=== PATIENT | male | born 1950 | race Caucasian/White ===

== ENCOUNTER 2017-06-15 09:49 | Day surgery (SDC) | payer OTHER ==
--- NOTE | 2017-06-15 07:13 | PDHPUP ---
History & Physical Update H&P update statement: This history and physical update is based on an assessment of the patient which was completed after admission or registration (within 24 hours), but prior to the surgery/procedure. H&P update: H&P reviewed & patient examined, no change in patient's condition since H&P completed
--- NOTE | 2017-06-15 07:20 | GHP ---
[f rep st] HISTORY AND PHYSICAL DATE OF ADMISSION: 06/15/2017 CURRENT COMPLAINT: Right shoulder weakness. HISTORY OF PRESENT ILLNESS: The patient is a 66-year-old male with a long history of right shoulder problems. An MRI revealed a chronic large rotator cuff tear. He would like a superior capsular everardo nstruction in order to increase comfort and function. ALLERGIES: Current allergies include Aleve. CURRENT MEDICATIONS: Include valacyclovir. PAST MEDICAL HISTORY: Prior medical problems are negative. PAST SURGICAL HISTORY: Prior surgeries include a right shoulder scope with rotator cuff repair. SOCIAL HISTORY: He is a former smoker. He has moderate alcohol use. PHYSICAL EXAMINATION: HEENT: Patient's pupils are equal, round, and reactive to light. CHEST: Giovanny ar to auscultation. HEART: Regular rate and rhythm. ABDOMEN: Soft and nontender. RIGHT SHOULDER: He has significant weakness to supraspinatus as well as decreased strength to external rotation. MRI shows a massive retracted rotator cuff tear with severe atrophy of the supraspinatus and infraspi natus. ASSESSMENT AND PLAN: The patient is status post right shoulder recurrent rotator cuff tear with atro phy and retraction. Plan is to take him to the operating room to undergo a right superior capsular r econstruction with allograft and anchors. /[id number]/MODL
[~2017-06-15 09:49] MED LIST: ACETAMINOPHEN 500 MG TAB PO ONE; BACITRACIN 50,000 UNITS/10 ML SYR IRR ONE; BUPIVACAINE/EPI 0.5% 30 ML SDV ONE; EPINEPHrine 30 MG/30 ML MDV (0.1 MG/0.1 ML) ONE; POLYMYXIN B SULFATE 500,000 UNIT/10 ML SYR IRR ONE; ceFAZolin 2 GM/SWFI 2 GM/20 ML SYR IVP ONE
[2017-06-15] MEDS ORDERED: ACETAMINOPHEN 500 MG TAB ONE (10:10)
[2017-06-15] MEDS ORDERED: ceFAZolin 2 GM/SWFI 20 ML SYR IVP ONE (10:11)
[2017-06-15] MEDS ORDERED: LIDOCAINE 1% 2 ML INJ ONE (10:11)
[2017-06-15] MEDS ORDERED: LR 1,000 ML IV ONE (10:13)
[2017-06-15] MEDS ORDERED: LIDOCAINE 1% 2 ML INJ ID PRN (10:13)
--- NOTE | 2017-06-15 11:10 | PDANEPAE ---
ANE History of Present Illness 66 yo M w traumatic R shoulder injury here for operative repair ANE Past Medical History - Cardiovascular History Hx Hypertension: No Hx Arrhythmias: No Hx Chest Pain: No Hx Coronary Artery / Peripheral Vascular Disease: No Hx CHF / Valvular Disease: No Hx Palpitations: No - Pulmonary History Hx COPD: No Hx Asthma/Reactive Airway Disease: No Hx Recent Upper Respiratory Infection: No Hx Oxygen in Use at Home: No Hx Sleep Apnea: No Sleep Apnea Screening Result - Last Documented: Negative - Neurologic History Hx Cerebrovascular Accident: No Hx Seizures: No Hx Dementia: No - Endocrine History Hx Diabetes: No - Renal History Hx Renal Disorders: No - Liver History Hx Hepatic Disorders: No - Neurological & Psychiatric Hx Hx Neurological and Psychiatric Disorders: No - Cancer History Hx Cancer: No - Congenital Disorder History Hx Congenital Disorders: No - GI History Hx Gastrointestinal Disorders: No - Other Health History Other Health History: NA - Surgical History Prior Surgeries: Rotator cuff repair on R 2012 ANE Review of Systems Review of Systems: - Exercise capacity Exercise capacity: >=4 METS METS (RN): 6 METS ANE Patient History - Allergies Allergies/Adverse Reactions: naproxen sodium [From Aleve] Allergy (Intermediate, Verified 01/18/10 14:53) RASH, ITCHY LAMASIL Allergy (Unknown, Uncoded 01/18/10 14:53) - Home Medications Home medications: home medication list seen and reviewed Home Medications: VALTREX 01/18/10 [Last Taken Unknown] - NPO status NPO Status: no food or drink >8 hours NPO Since - Liquids (Date): 06/15/17 NPO Since - Liquids (Time): 03:00 NPO Since - Solids (Date): 06/14/17 NPO Since - Solids (Time): 20:00 - Anes Hx Anes Hx: no prior problems - Smoking Hx Smoking Status: Never smoked - Alcohol Use Alcohol Use: Occasionally - Family Anes Hx Family Anes Hx: none Family Hx Anesthesia Complications: NA ANE Labs/Vital Signs - Vital Signs Blood Pressure: 145/86 Heart Rate: 74 Respiratory Rate: 16 O2 Sat (%): 98 Height: 177.8 cm Weight: 83.915 kg ANE Physical Exam - Airway Neck exam: FROM Mallampati Score: Class 2 Mouth exam: normal dental/mouth exam - Pulmonary Pulmonary: no respiratory distress, clear to auscultation - Cardiovascular Cardiovascular: regular rate and rhythym, no murmur, rub, or gallop - ASA Status ASA Status: II ANE Anesthesia Plan Anesthesia Plan: general endotracheal anesthesia Regional Anesthesia: single shot NB, interscalene BP NB
[2017-06-15] MEDS ORDERED: MIDAZOLAM 2 MG/2 ML VIAL IVP ONE (11:12)
[2017-06-15] MEDS ORDERED: PROPOFOL 200 MG/20 ML VIAL ONE (11:19)
[2017-06-15] MEDS ORDERED: fentaNYL 100 MCG/2 ML INJ ONE (11:19)
[2017-06-15] MEDS ORDERED: LIDOCAINE 2% 100 MG/5 ML SYR ONE (11:21)
[2017-06-15] MEDS ORDERED: ROCURONIUM 50 MG/5 ML VIAL ONE (11:22)
[2017-06-15] MEDS ORDERED: ROPIVACAINE HCL 150 MG/30 ML INJ ONE (11:22)
[2017-06-15] MEDS ORDERED: clonIDINE 1 MG/10 ML VIAL EP ONE (11:22)
[2017-06-15] MEDS ORDERED: CALCIUM CHLORIDE 1 GM/10 ML INJ ONE (11:56)
[2017-06-15] MEDS ORDERED: THROMBIN (BOVINE) 5,000 UNIT VIAL TP ONE (11:57)
[2017-06-15] MEDS ORDERED: PHENYLEPHRINE 10 MG/ML SDV ONE (12:06)
[2017-06-15] MEDS ORDERED: DEXAMETHASONE 4 MG/ML VIAL ONE (12:39)
[2017-06-15] MEDS ORDERED: ONDANSETRON 4 MG/2 ML VIAL ONE (12:39)
[2017-06-15] MEDS ORDERED: ONDANSETRON 4 MG/2 ML VIAL IVP PRN ×2 (13:43)
[2017-06-15] MEDS ORDERED: NALOXONE HCL 0.4 MG/ML INJ IVP PRN (13:43)
[2017-06-15] MEDS ORDERED: ACETAMINOPHEN 325 MG TAB PO PRN (13:43)
[2017-06-15] MEDS ORDERED: HYDROCODONE/APAP 5/325 TAB PO PRN ×2 (13:43)
[2017-06-15] MEDS ORDERED: OXYCODONE/APAP 5/325 TAB PO PRN (13:43)
[2017-06-15] MEDS ORDERED: fentaNYL 100 MCG/2 ML INJ IVP PRN (13:43)
[2017-06-15] MEDS ORDERED: HYDROmorphONE/DILAUDID 1 MG/ML INJ IVP PRN ×2 (13:43)
--- NOTE | 2017-06-15 13:43 | POSTOPPROG ---
Post Op Note Date of Operation: 06/15/17 Surgeon: Meliza Mccain Molding Line Operator: trupti Anesthesiologist: minoo Anesthesia: LMA, Other (Specify) Pre-op Diagnosis: r recurrent RCT Procedure: r shoulder scope w/ RCR revision and debride RC/labrum Inf/Abcess present in the surg proc area at time of surgery?: No Depth: Deep Incisional (Fascial) EBL: 50-100
--- NOTE | 2017-06-15 13:56 | POSTANESTH ---
Post Anesthetic Evaluation Cardiovascular Status: Normal, Stable, Similar to Pre-Op Cond Respiratory Status: Normal, Stable, Similar to Pre-op Cond. Level of Consciousness/Mental Status: Can Participate in Eval, Alert and Oriented Pain Control: Adequate, Prn Tx Ordered Nausea/Vomiting Control: Adequate, Prn Tx Ordered Complications Possibly Related to Anesthesia: None Noted
--- NOTE | 2017-06-15 14:41 | GOP ---
[f rep st] OPERATIVE REPORT DATE OF OPERATION: 06/15/2017 SURGEON: Meliza Mccain MD TUBE LASER OPERATOR: Jonathan Garcia CSFA, LSA, whose presence was medically necessary. ANESTHESIA: By LMA plus scalene nerve block per surgeon's request. PREOPERATIVE DIAGNOSIS: Recurrent right rotator cuff tear. POSTOPERATIVE DIAGNOSIS: Recurrent right rotator cuff tear. PROCEDURE PERFORMED: Right shoulder scope with rotator cuff repair revision with anchors x6 as well as debridement of labrum and rotator cuff. . FINDINGS: INDICATIONS: This is a 66-year-old male, who had previously undergone a right rotator cuff repair ap proximately 4 years ago. He recently developed weakness into the shoulder as well as some mild pain. MRI reveals some osteoarthritic change as well as large rotator cuff tear with retraction and some a trophy noted to the musculature. The patient wished to have surgery in order to resolve the problem. DESCRIPTION OF PROCEDURE: Patient brought to the operating room after the right side had been identi fied as the correct side by the patient, nurse and physician. Once in the operating room, he was giv en a scalene block on the right side. He was then placed under general anesthesia using an LMA. Onc e asleep, he was placed in a beach chair position with the right upper extremity sterilely prepped an d draped in the usual fashion using GSI solution. Once prepped and draped, incision was made using pr ior scar. The incision was made off the posterolateral corner of the acromion with the camera introd uced without difficulty. Inspection of the joint revealed tearing of the anterior and superior porti ons of the labrum as well as a large rotator cuff tear. Therefore, using an in to out technique, an anterior portal was made in superolateral coracoid process using a prior scar with a 6 x 75 mm thread ed cannula placed through the anterior portal and a 3.5 mm smooth shaver used to debride both the tea rs of the anterior and superior portion of the labrum as well as the fraying edge of the rotator cuff tear. Using the same portal sites, the same instruments were reintroduced in subacromial space and, using a prior incision, a third incision was made lateral to the acromial process in line with the p osterior cortex of the clavicle. A grasper was used to pull on the tissue associated with the rotato r cuff tear. He was noted to have good integrity of the tissue as well as visible blood vessels withi n that tissue. He had a great deal of tissue that was available posteriorly that was able to be broug ht over and placed without difficulty along the area of the footprint of the greater tuberosity. A [facility] search revealed the anchors and sutures to be intact from his prior repair, they were left in place since they were out of the way. Using a double row technique, a set of [place] anchors were pl aced next to the cartilage edge at the central and posterior portions of the greater tuberosity with FiberTape and FiberWire in the each of the anchors. These then had the rotator cuff pulled anterolate rally and, with each of these sets of sutures passed through the posterior and mid portions of the ro tator cuff tear respectively, the sutures were then crossed over the top with 1 limb of each suture p assed through another [place] anchor which was set approximately 1 cm away along the greater tuberosi ty in order to gain a larger footprint across the rotator cuff repair. Once completed, still had a sm all area of visible tear at the anterior portion of the rotator cuff and, since this tissue had good integrity, 2 sets of #2 FiberWire woven into the mid, into the posterior and anterior portions of thi s anterior section of tear and each were attached onto a [place] anchor, driven into the bone with go od fixation and apposition of the soft tissue onto the eburnated bone. Once completed, all instrumen ts were removed from the subacromial space with 30 cc of Marcaine infused in the subacromial space. All portal sites were closed using 3-0 nylon suture in a [id number] type stitch with plasma gel then injected in the subacromial space. Each wound was then dressed with Xeroform, 4 x 4, and Tegade rm. He was completely undraped in the operating room, had the right upper extremity placed in a shou lder immobilizer. He was woken up, extubated, transferred onto a stretcher, and sent to [facility] in good condition. /[id number]/MODL
[2017-06-15 14:51] VITALS: PULSE 60; RESP 12
[2017-06-15 15:29] VITALS: TEMP 97.5
[2017-06-15 16:00] VITALS: BP 125/82; O2SAT 95
== END 2017-06-15 15:59 | disposition home or self-care (01) ==
LOC: FSGY 09:49
PROVIDERS: ATTEND Orthopaedic Surgery
PROC: 0MB14ZZ Excision of Right Shoulder Bursa and Ligament, Percutaneous Endoscopic Approach (ICD-10-PCS; principal; 2017-06-15 11:15)
PROC: 0LQ14ZZ Repair Right Shoulder Tendon, Percutaneous Endoscopic Approach (ICD-10-PCS; principal; 2017-06-15 11:15)
DX: M75.101 Unspecified rotator cuff tear or rupture of right shoulder, not specified as traumatic (principal); S43.431A Superior glenoid labrum lesion of right shoulder, initial encounter; X50.0XXA Overexertion from strenuous movement or load, initial encounter; Z87.891 Personal history of nicotine dependence
CPT/HCPCS: C1713; J0171; J0690; J0735; J1100; J2001; J2250; J2370; J2405; J2704; J2795; J3010

== ENCOUNTER 2017-09-29 15:37 | Emergency (ER) | payer OTHER ==
[2017-09-29] MEDS ORDERED: TDAP ADULT 0.5 ML INJ (BOOSTRIX) IM ONE (16:08)
--- NOTE | 2017-09-29 16:12 | EDPHY ---
H & P Time Seen by Provider: 09/29/17 15:56 HPI/ROS: This patient was working at home with a table saw to cut a piece of oak when the wood slipped and caused a laceration to his left thumb with moderate pain in bleeding. The bleeding slowed with direct pressure. He is accompanied by his who drove him here by private vehicle for evaluation of his wound. He denies any other injuries besides the thumb. He has no other complaints. ROS: Musculoskeletal: No bony pain to the affected thumb. Neuro: No numbness. No difficulty moving the affected thumb. Cardiovascular: No lightheadedness. No pulsatile bleeding. 5 point ROS is otherwise negative. Past Medical/Surgical History: He is not up-to-date with his tetanus immunization. He believes it has been more than 10 years. He is otherwise healthy Smoking Status: Never smoked Physical Exam: Physical Exam Vital signs are normal. General: No acute distress Lungs: No respiratory distress. Cardiac: Brisk capillary refill is intact throughout. Pulses are 2+ and symmetric in the affected extremity. Skin: No rash or pallor. Extremities: Atraumatic normal except for left thumb Left thumb: Patient has ice 3.3 cm long flap-type wound with with macerated tissue on the ulnar aspect of the wound. There is also skin avulsion on the ulnar aspect with what appears to be 0.5 cm or so of missing tissue. subcutaneous tissue exposed due to avulsion of most of the skin. There is mild wood chip contamination. No bone exposure. No nail bed injury. Neuro: Alert with no sensorimotor deficits in the affected thumb. He maintains normal light touch sensory exam beyond the wound. Constitutional: Initial Vital Signs Temperature (C) 37 C 09/29/17 15:43 Heart Rate 79 09/29/17 15:43 Respiratory Rate 16 09/29/17 15:43 Blood Pressure 149/87 H 09/29/17 15:43 O2 Sat (%) 96 09/29/17 15:43 O2 Delivery Mode Room Air Allergies/Adverse Reactions: naproxen sodium [From Aleve] Allergy (Intermediate, Verified 09/29/17 15:47) RASH, ITCHY LAMASIL Allergy (Unknown, Uncoded 09/29/17 15:47) Home Medications: Medication Instructions Recorded VALTREX 01/18/10 MDM/Departure - MDM Procedures: Digital block: After verbal consent, using a 50 50 mix of 0.5% Marcaine 2% plain lidocaine, 27 gauge needle, chlorhexidine scrub under sterile conditions- 3 injections were administered to the base of the affected finger, 8 mL with good effect. Patient tolerated this well. There were no complications. The wound is 3.3 cm in length described physical exam The wound was copiously irrigated with saline. After irrigation, The wound was explored for foreign bodies and none were found. The wound was prepped and draped in the normal sterile fashion. I debrided the nonviable macerated tissue on the ulnar aspect of the wound. The edges were reapproximated using 4 0 Prolene, a 11 interrupted sutures with good hemostasis and decent cosmesis. Also unable to completely close the wound along the ulnar margin the evening at a few mm open due to missing/avulsed tissue. The patient tolerated the procedure well. There were no complications. Bacitracin and tube gauze dressing were applied by our tech. I counseled the patient his regarding wound care. Medications Given: Discontinued Medications Diphtheria/Tetanus/Acell Pertussis (Boostrix) 0.5 ml IM .ONCE ONE Stop: 09/29/17 16:09 Last Admin: 09/29/17 16:24 Dose: 0.5 ml ED Course/Re-evaluation: Discussion: Patient with thumb laceration with extensive soft tissue injury and macerated tissue with some skin avulsion. The skin flap that I sutured in place has diminished perfusion and may ultimately not be viable but will serve as a biologic bandage at a minimum and may survive to provide good coverage of this wound. I counseled the patient regarding this. He understands the need to return emergency department should he developed redness, discharge or other concerns for infection. - Depart Disposition: Home, Routine, Self-Care Clinical Impression: Thumb laceration Qualifiers: Encounter type: initial encounter Damage to nail status: without damage Foreign body presence: without foreign body Laterality: left Qualified Code(s): S61.012A - Laceration without foreign body of left thumb without damage to nail , initial encounter Condition: Good Instructions: Finger Laceration (ED) Additional Instructions: Diagnosis: Thumb laceration Plan: Keep the wound clean and dry for the next 2 days. Then clean daily with warm soapy water Return for suture removal in 10-12 days Ibuprofen and Tylenol for pain as needed Return sooner if you develop redness, discharge or other concerns for infection. Referrals: NONE *PRIMARY CARE P,. [Primary Care Provider] - As per Instructions
[2017-09-29 17:41] VITALS: BP 135/80
== END 2017-09-29 17:39 | disposition home or self-care (01) ==
LOC: CED 15:37
PROC: 0HQGXZZ Repair Left Hand Skin, External Approach (ICD-10-PCS; principal; 2017-09-29)
DX: S61.012A Laceration without foreign body of left thumb without damage to nail, initial encounter (principal); Z23 Encounter for immunization; W26.8XXA Contact with other sharp object(s), not elsewhere classified, initial encounter; Y92.009 Unspecified place in unspecified non-institutional (private) residence as the place of occurrence of the external cause; Y99.8 Other external cause status; Y93.89 Activity, other specified

== ENCOUNTER 2017-10-05 10:31 | Emergency (ER) | payer OTHER ==
--- NOTE | 2017-10-05 10:35 | EDPHY ---
H & P Time Seen by Provider: 10/05/17 10:32 HPI/ROS: Chief Complaint: Wound check HPI: 66-year-old male sustained a laceration to his left thumb on a table saw a week ago. He was seen here and had sutures placed. is concerned that there is an area of dark tissue and that is not healing well and presenting for wound check. Denies redness. No fevers or chills. Had some greenish discharge from wound several days ago but that stopped. ROS: 10 point Review of Systems is negative except as noted in the HPI. Family History: non-contributory Physical Exam: General: Awake, alert, no acute distress Left thumb: Patient has a healing thumb laceration with a large fulls area. There is an area of nonviable skin which has been sutured which is dusky in appearance. Surrounding this there is normal appearing granulation tissue. There is no dehiscence. There is no discharge. There is no proximal redness. Sensations intact distally. Skin: No rash - Medical/Surgical History Hx Asthma: No Hx Chronic Respiratory Disease: No Hx Diabetes: No Hx Cardiac Disease: No Hx Renal Disease: No Hx Cirrhosis: No Hx Alcoholism: No Hx HIV/AIDS: No Hx Splenectomy or Spleen Trauma: No Other PMH: ortho surgery, rotator cuff surgeries - Social History Smoking Status: Never smoked Allergies/Adverse Reactions: naproxen sodium [From Aleve] Allergy (Intermediate, Verified 09/29/17 15:47) RASH, ITCHY LAMASIL Allergy (Unknown, Uncoded 09/29/17 15:47) Home Medications: Medication Instructions Recorded VALTREX 01/18/10 Medical Decision Making ED Course/Re-evaluation: Patient has healing wound. I do not want to remove the sutures at this time. They should be removed in another week or so. There are no signs of infection at this time. Has been dressed. Will discharge with follow-up. Departure - Departure Disposition: Home, Routine, Self-Care Clinical Impression: Healing wound Condition: Good Instructions: Laceration (ED) Additional Instructions: Return to the emergency department in 7 days for suture removal. Keep wound clean and dry.
[2017-10-05 10:51] VITALS: BP 137/85
== END 2017-10-05 10:56 | disposition home or self-care (01) ==
LOC: CED 10:31
DX: Z48.01 Encounter for change or removal of surgical wound dressing (principal)
CPT/HCPCS: G0463